=== PATIENT | male | born 1990 | race Caucasian/White ===

== ENCOUNTER 2016-04-09 13:31 | Emergency (ER) | payer SELFPAY ==
[~2016-04-09] VITALS: Ht 172.7 cm; Wt 67.5 kg
[~2016-04-09 13:31] MED LIST: ALBU1AER9 INH; ZOLP10TA6 PO
[2016-04-09 13:49] VITALS: TEMP 36.8; Ht 172.7 cm; Wt 67.5 kg
--- NOTE | 2016-04-09 14:23 | DIAGNOSTIC IMAGING REPORT ---
RIGHT SHOULDER MIN 2 VIEWS ROUTINE CLINICAL HISTORY: rule out fracture Right trauma. Pain. COMPARISON: None. DISCUSSION: The bones and joint spaces appear intact. There is no evidence of fracture, dislocation or bony disease. There is no evidence for soft tissue swelling. IMPRESSION: Negative study. Electronically signed by: Master Alvarez M.D. 04/09/2016 2:22 PM Dictated Date/Time: 04/09/2016 2:22 PM
--- NOTE | 2016-04-09 15:23 | DIAGNOSTIC IMAGING REPORT ---
RIGHT CLAVICLE CLINICAL HISTORY: Right medial clavicle edema, tenderness Right pain COMPARISON: None. DISCUSSION: Fracture medial right clavicle. There appears to be periosteal reaction suggesting potential partial healing. Alignment is in general anatomic. There is no evidence for soft tissue swelling. IMPRESSION: Healing fracture medial right clavicle Electronically signed by: Master Alvarez M.D. 04/09/2016 3:22 PM Dictated Date/Time: 04/09/2016 3:21 PM
[2016-04-09] MEDS ORDERED: OXYC1TAB3 PO (15:36)
[2016-04-09] MEDS ORDERED: OXYCODONE IR HOME PACK PO STA (15:37)
--- NOTE | 2016-04-09 15:37 | EMERGENCY ROOM VISIT NOTE ---
History First contact with patient: 14:10 Chief Complaint: SHOULDER PAIN Stated Complaint: RIGHT SHOULDER INJURY/PAIN History of Present Illness The patient is a 25 year old male who presents to the Emergency Room via private vehicle with complaints of "right shoulder injury/pain". The patient states that yesterday while playing volleyball recreationally he was going for a ball and struck the ground with his arms and notes immediate pain in the right clavicular region. He states that he has been experiencing a weird sensation in that region. He denies any arm pain and rates the clavicular pain as a 5/10. He has been taking ibuprofen with some relief. He denies any arm weakness. He denies any posterior neck pain or headache. He points to a visible bump the medial portion of the right clavicle. He also notes at about a week ago he was weight lifting and felt an odd sensation in the same region. Review of Systems A complete 6-point Review of Systems was discussed with the patient, with pertinent positives and negatives listed in the History of Present Illness. All remaining Review of Systems questions can be considered negative unless otherwise specified. Past Medical/Surgical History Seasonal asthma Family History No pertinent family history. Social History Smoking Status: Never Smoker Alcohol Use: occasionally Social History: Patient is employed and lives at home with mother. Current/Historical Medications Scheduled PRN Albuterol Sulfate (Proair Hfa), 2 PUFFS INH Q4-6HRS PRN for Asthma Symptoms Oxycodone Ir (Roxicodone Ir), 1-2 TAB PO Q4H PRN for Pain Zolpidem Tartrate (Zolpidem Tartrate), 10 MG PO HS PRN for Sleep Allergies Coded Allergies: Shellfish (Verified Allergy, Unknown, ., 04/09/16) Physical Exam Vital Signs Date Time Temp Pulse Resp B/P Pulse Ox O2 Delivery O2 Flow Rate FiO2 04/09/16 15:45 75 16 142/83 98 04/09/16 13:49 36.8 111 20 158/81 98 Room Air Physical Exam VITAL SIGNS - Vital signs and nursing notes were reviewed. Patient is afebrile , blood pressure 158/81, tachycardic at a rate of 100 bpm saturating well on room air at 98% GENERAL -25-year-old male appearing his stated age who is in no acute distress. Communicates well with provider and answers questions appropriately. SKIN - Without rashes. The skin is intact overlying the right clavicle. There is edema noted. HEAD - NC/AT. NECK - Neck with FROM. Supple to palpation. No lymphadenopathy noted. No nuchal rigidity. No C-spine tenderness. LUNGS - Chest wall symmetric without accessory muscle use, intercostals retractions, or central cyanosis. Normal vesicular breath sounds CTA B/L. No wheezes, rales, or rhonchi appreciated. CARDIAC - RRR with S1/S2. No murmur, rubs, or gallops appreciated. EXTREMITIES - No clubbing or peripheral cyanosis. No pretibial edema present. Patient is vascular intact in the right upper extremity. There is palpable deformity of the right medial clavicle. This region is enlarged 2 cm in diameter, and is tender to palpation. Skin is intact. No evidence of dislocation of the sternoclavicular joint. +5/5 strength noted in UE/LE bilaterally. NEUROLOGIC - Cranial nerves II through XII grossly intact. No sensory deficits or neurologic deficits appreciated in the upper extremity. Patient is vascularly intact. PSYCH - Pt is very pleasant and interacts well with examiner. Medical Decision & Procedures ER Provider Diagnostic Interpretation: RIGHT CLAVICLE CLINICAL HISTORY: Right medial clavicle edema, tenderness Right pain COMPARISON: None. DISCUSSION: Fracture medial right clavicle. There appears to be periosteal reaction suggesting potential partial healing. Alignment is in general anatomic. There is no evidence for soft tissue swelling. IMPRESSION: Healing fracture medial right clavicle Electronically signed by: Master Alvarez M.D. 04/09/2016 3:22 PM Dictated Date/Time: 04/09/2016 3:21 PM RIGHT SHOULDER MIN 2 VIEWS ROUTINE CLINICAL HISTORY: rule out fracture Right trauma. Pain. COMPARISON: None. DISCUSSION: The bones and joint spaces appear intact. There is no evidence of fracture, dislocation or bony disease. There is no evidence for soft tissue swelling. IMPRESSION: Negative study. Electronically signed by: Master Alvarez M.D. 04/09/2016 2:22 PM Dictated Date/Time: 04/09/2016 2:22 PM Medications Administered Medications (Trade) Dose Ordered Sig/Cynthia Route Start Time Stop Time Status Last Admin Dose Admin Oxycodone HCl (Roxicodone Immediate Rel 5MG Home Pack) 1 homepack UD STAT PO 04/09/16 15:37 04/09/16 15:39 DC 04/09/16 15:45 1 [facility] Medical Decision Patient was seen and evaluated as above. After obtaining a thorough history and physical examination were initial radiograph was obtained. Shoulder radiograph was negative. I had clinical suspicion of a clavicle fracture and therefore dedicated study was obtained. Clavicle fracture was noted. Patient was provided with an arm sling with good fit. Patient was educated upon management. He was given the number for orthopedic surgeon and instructed to call the number first thing tomorrow morning to schedule follow-up. There is no evidence of pneumothorax upon my exam. Patient was saturating well on room air. No evidence of open fracture. Patient was educated upon management of these findings. He was educated on worrisome symptoms which to return, had questions or discharge and was discharged home in good condition. He did not want anything for pain immediately while he was here, but did want something for home. He was given a home pack of OxyIR as well as a short-term prescription which was sent to his pharmacy for pickup. In the evaluation and treatment of this patient following differential diagnoses were entertained: Clavicle fracture, sternoclavicular joint dislocation, contusion, among others. Pt. Called and felt "jittery" on the Oxy IR. He notes he had percocet before. I canceled the Oxy IR and prescribed Percocet. [facility] Monitoring Program Search Results: patient reviewed within database, no issues identified Impression Primary Impression: Fracture, clavicle closed, shaft Departure Information Dispostion Home / Self-Care Condition GOOD Prescriptions Oxycodone/Acetaminophen 5MG/325MG (PERCOCET 5MG/325MG) Tab 1 TAB PO Q4H Y for Pain, #15 TAB For Initial Treatment Prov: Wallace Johnson PA-C 04/10/16 Referrals No Doctor, Assigned (PCP) Juan Locke M.D. Patient Instructions My [facility] Additional Instructions You have been treated in the Emergency Department for right clavicle pain. X-ray reveals you have broken your right collarbone. You have been prescribed OxyIR to be used for pain control. This is a narcotic medication. You cannot drive or consume alcohol while on this medicine. This medicine should only be used for pain that cannot be controlled with over-the- counter pain medicines. Please take this with a stool softener to help with constipation. For pain control, you can use the following [id number] medicines (if >12 yo): - Regular strength (325mg/tab) Tylenol (acetaminophen) 2 tabs every 4-6 hours as needed. Do not exceed 12 tablets in a 24 hour period. Avoid taking more than 4 grams (4000 mg) of Tylenol per day. This includes any other sources of acetaminophen you may take on a regular basis. - Regular strength (200 mg/tab) Advil (ibuprofen) 1-2 tabs every 4-6 hours as needed. Do not exceed a dose of 3200 mg per day. If this is a recent injury (<24 hrs), ice can be applied to the area of pain for the first 3 days to help decrease pain and inflammation. You have been provided the number for an Orthopaedic Surgeon. You should call this number as soon as possible to establish a follow-up visit from today's Emergency Department visit. Keep the shoulder brace/sling in place until evaluated by Orthopedics. Continue to perform range of motion exercises several times per day to help prevent the development of a "frozen shoulder". Return to the Emergency Department if your current symptoms worsen despite treatment course outlined above, or if you develop any of the following symptoms : intractable pain despite aforementioned treatment course or new onset of numbness or tingling of the arm. Please return to the emergency department with any new/concerning symptoms.
[2016-04-09 15:45] VITALS: BP 142/83; PULSE 75; O2SAT 98
[2016-04-10] MEDS ORDERED: OXYC-57 PO (12:56)
== END 2016-04-09 15:48 | disposition home or self-care (01) ==
LOC: C.EDB 13:32 → C.EDD 15:48
DX: S42.001A Fracture of unspecified part of right clavicle, initial encounter for closed fracture (principal); W21.00XA Struck by hit or thrown ball, unspecified type, initial encounter; Z91.018 Allergy to other foods

== ENCOUNTER 2017-09-18 21:08 | Emergency (ER) | payer OTHER ==
[~2017-09-18] VITALS: Ht 170.2 cm; Wt 66.9 kg
[2017-09-18 21:29] VITALS: TEMP 36.4; Ht 170.2 cm; Wt 66.9 kg
[2017-09-18] MEDS ORDERED: ALBUT/IPRATROP 3MG/0.5MG NEB 3 ML VIAL INH STA (21:38)
[2017-09-18] MEDS ORDERED: DEXAMETHASONE **PF** INJ 10 MG/ML VIAL IV ONE (21:45)
[2017-09-18 21:55] VITALS: O2SAT 98
[2017-09-18 22:08] LABS: HEMATOCRIT 45.7 % (42-52); HEMOGLOBIN 15.8 g/dL (14.0-18.0); MEAN CELL VOLUME 92.1 fL (80-100); MEAN CORPUSCULAR HEMOGLOBIN 31.9 pg (25-34); MEAN CORPUSCULAR HGB CONC 34.6 g/dl (32-36); MEAN PLATELET VOLUME 10.3 fL (7.4-10.4); PLATELET COUNT 324 K/uL (130-400); RED CELL DISTRIBUTION WIDTH CV 12.7 % (11.5-14.5); RED CELL DISTRIBUTION WIDTH SD 42.8 fL (36.4-46.3); WHITE BLOOD COUNT 12.61 K/uL (4.8-10.8)
[2017-09-18 22:39] LABS: ALBUMIN 4.4 gm/dl (3.4-5.0); ALKALINE PHOSPHATASE 65 U/L (45-117); ALT/SGPT 40 U/L (12-78); BLOOD UREA NITROGEN 19 mg/dl (7-18); CALCIUM 9.1 mg/dl (8.5-10.1); CARBON DIOXIDE 26 mmol/L (21-32); CREATININE 1.09 mg/dl (0.60-1.40); GLUCOSE 135 mg/dl (70-99); POTASSIUM 3.8 mmol/L (3.5-5.1); SODIUM 140 mmol/L (136-145)
[2017-09-18 22:42] LABS: BASO % 0.2 %; BASO ABS # 0.03 K/uL (0-0.2); EOS % 4.1 %; EOS ABS # 0.52 K/uL (0-0.5); IG# 0.04 K/uL (0.00-0.02); LYMPH % 46.9 %; LYMPH ABS # 5.91 K/uL (1.2-3.4); MONO % 7.1 %; MONO ABS # 0.89 K/uL (0.11-0.59); NEUT % 41.4 %; NEUT ABS # 5.22 K/uL (1.4-6.5)
[2017-09-18 22:44] LABS: AST/SGOT 31 U/L (15-37)
[2017-09-18] MEDS ORDERED: FLNIN/ NAE (22:49)
[2017-09-18] MEDS ORDERED: VNTHFA/IN INH (22:50)
--- NOTE | 2017-09-18 22:56 | DIAGNOSTIC IMAGING REPORT ---
CHEST 2 VIEWS ROUTINE HISTORY: 27 years-old Male productive cough acute productive cough COMPARISON: Chest radiographs 02/29/2012 TECHNIQUE: PA and lateral views of the chest FINDINGS: Cardiomediastinal and hilar silhouettes are within normal limits. No pneumothorax, pleural effusion, focal airspace consolidation or overt pulmonary edema. The bones of the chest appear grossly intact. IMPRESSION: No acute process. The above report was generated using voice recognition software. It may contain grammatical, syntax or spelling errors. Electronically signed by: Nikita Jarvis M.D. 09/18/2017 10:55 PM Dictated Date/Time: 09/18/2017 10:54 PM
[2017-09-18 23:05] VITALS: BP 152/82; PULSE 100; O2SAT 98
[2017-09-18] MEDS ORDERED: PRED50TA PO (23:23)
[2017-09-18] MEDS ORDERED: HYDROCODONE/APAP ELIX 60ML HOME PACK PO ONE (23:30)
--- NOTE | 2017-09-19 03:10 | EMERGENCY ROOM VISIT NOTE ---
History First contact with patient: 21:33 Chief Complaint: COUGH Stated Complaint: COUGH, TROUBLE BREATHING Nursing Triage Summary: Patient ambulatory to triage with an upright and steady gait, states "I have been having these coughing attacks. I have to gasp for air. I have an inhaler and have been using it almost every 2 hours. I have been really sick for at least 4 days." Patient reports intermittently coughing up thick clear to yellow mucous. History of Present Illness The patient is a 27 year old male who presents to the Emergency Room with complaints of cough and congestion with wheezing for the past week or 2 who saw the family care doctor 4 days ago and was told to use his inhaler. Patient has been using his inhaler nonstop. He feels that he is having trouble catching his breath. Patient denies chest pain, fevers, sore throat, earache, abdominal pain, nausea, vomiting, diarrhea, nexus, leg pain or swelling. No family history of heart disease or blood clots. No personal history of blood clots or heart disease. He does not smoke. No drug use. Review of Systems An 10 system review of systems was completed with positives and pertinent negatives listed in the HPI. Past Medical/Surgical History Asthma Social History Smoking Status: Never Smoker Alcohol Use: occasionally Marital Status: single Housing Status: lives with family Current/Historical Medications Scheduled Fluticasone Propionate (Fluticasone Propionate), 2 SPRAYS REJI DAILY Prednisone (Prednisone), 50 MG PO DAILY Scheduled PRN Albuterol Hfa (Ventolin Hfa), 2 PUFFS INH Q4 PRN for SOB/Wheezing Zolpidem Tartrate (Zolpidem Tartrate), 10 MG PO HS PRN for Sleep Physical Exam Vital Signs Date Time Temp Pulse Resp B/P (MAP) Pulse Ox O2 Delivery O2 Flow Rate FiO2 09/18/17 23:05 100 16 152/82 98 Room Air 09/18/17 22:03 111 09/18/17 21:55 98 Room Air 09/18/17 21:29 36.4 140 20 169/81 98 Room Air 09/18/17 21:29 98 Room Air Physical Exam PHYSICAL EXAM: Vital Signs: Reviewed Nurse's notes. Oxygen saturation was 98% on room air. GENERAL: Pleasant male anxious appearing, Alert, oriented and coherent. The patient is able to speak in complete sentences. NECK: Supple, non -tender. CHEST: Symmetrical expansion. no retractions no accessory muscle use. HEART: Regular rate and normal heart sounds, no murmur, gallop or rub. LUNGS: Breath sounds equal but significantly diminished in intensity on both sides. Bilateral wheezes heard but no rales or pleuritic rub. SKIN: The skin was without rashes, erythema, edema, or bruising. There is no tenting of the skin. Capillary reflex less than 2 seconds. HEAD: Normocephalic atraumatic. EARS: External auditory canals clear, tympanic membranes pearly dugan without erythema or effusion bilaterally. EYES: Pupils equal round and reactive to light and accommodation. Conjunctivae without injection, sclerae without icterus. Extraocular movements intact. NOSE: Patent, turbinates without inflammation or discharge. No sinus tenderness. MOUTH: Mucous membranes moist. Pharynx without erythema or exudate. Uvula midline. Airway patent. Tongue does not deviate. ABDOMEN: Positive bowel sounds x 4. Normal tympanic percussion. Soft, nontender, without masses or organomegaly. Lopez sign negative. No guarding or rebound tenderness. MUSCULOSKELETAL: No muscle atrophy, erythema, or edema noted. NEURO: Patient was alert and oriented to person place and time. Normal sensation to light and sharp touch. No focal neurological deficits. Medical Decision & Procedures Laboratory Results 09/18/17 21:55 Red Blood Count 4.96, Mean Corpuscular Volume 92.1, Mean Corpuscular Hemoglobin 31.9, Mean Corpuscular Hemoglobin Concent 34.6, Mean Platelet Volume 10.3, Neutrophils (%) (Auto) 41.4, Lymphocytes (%) (Auto) 46.9, Monocytes (%) (Auto) 7.1, Eosinophils (%) (Auto) 4.1, Basophils (%) (Auto) 0.2, Neutrophils # (Auto) 5.22, Lymphocytes # (Auto) 5.91, Monocytes # (Auto) 0.89, Eosinophils # (Auto) 0.52, Basophils # (Auto) 0.03 09/18/17 21:55 Test 09/18/17 21:55 09/18/17 22:00 White Blood Count 12.61 K/uL (4.8-10.8) Red Blood Count 4.96 M/uL (4.7-6.1) Hemoglobin 15.8 g/dL (14.0-18.0) Hematocrit 45.7 % (42-52) Mean Corpuscular Volume 92.1 fL (80-100) Mean Corpuscular Hemoglobin 31.9 pg (25-34) Mean Corpuscular Hemoglobin Concent 34.6 g/dl (32-36) Platelet Count 324 K/uL (130-400) Mean Platelet Volume 10.3 fL (7.4-10.4) Neutrophils (%) (Auto) 41.4 % Lymphocytes (%) (Auto) 46.9 % Monocytes (%) (Auto) 7.1 % Eosinophils (%) (Auto) 4.1 % Basophils (%) (Auto) 0.2 % Neutrophils # (Auto) 5.22 K/uL (1.4-6.5) Lymphocytes # (Auto) 5.91 K/uL (1.2-3.4) Monocytes # (Auto) 0.89 K/uL (0.11-0.59) Eosinophils # (Auto) 0.52 K/uL (0-0.5) Basophils # (Auto) 0.03 K/uL (0-0.2) RDW Standard Deviation 42.8 fL (36.4-46.3) RDW Coefficient of Variation 12.7 % (11.5-14.5) Immature Granulocyte % (Auto) 0.3 % Immature Granulocyte # (Auto) 0.04 K/uL (0.00-0.02) Tear Drop Cells 1+ Anion Gap 9.0 mmol/L (3-11) Est Creatinine Clear Calc Drug Dose 94.4 ml/min Estimated GFR () 106.5 Estimated GFR (Non- 91.9 BUN/Creatinine Ratio 17.6 (10-20) Calcium Level 9.1 mg/dl (8.5-10.1) Magnesium Level 2.0 mg/dl (1.8-2.4) Total Bilirubin 0.2 mg/dl (0.2-1) Direct Bilirubin < 0.1 mg/dl (0-0.2) Aspartate Amino Transf (AST/SGOT) 31 U/L (15-37) Alanine Aminotransferase (ALT/SGPT) 40 U/L (12-78) Alkaline Phosphatase 65 U/L (45-117) Troponin I < 0.015 ng/ml (0-0.045) Total Protein 8.0 gm/dl (6.4-8.2) Albumin 4.4 gm/dl (3.4-5.0) Thyroid Stimulating Hormone (TSH) 0.618 uIu/ml (0.300-4.500) Bedside D-Dimer 179 ng/mlFEU (0-450) Medications Administered Medications (Trade) Dose Ordered Sig/Cynthia Route Start Time Stop Time Status Last Admin Dose Admin Albuterol/ Ipratropium (Duoneb) 3 ml NOW STAT INH 09/18/17 21:38 09/18/17 21:40 DC 09/18/17 22:06 3 ML Dexamethasone Sodium Phosphate (Dexamethasone Inj Pf) 10 mg NOW ONCE IV 09/18/17 21:45 09/18/17 21:46 DC 09/18/17 22:06 10 MG Acetaminophen/ Hydrocodone Bitart (Hydrocod/Apap Elix 7.5/325MG/ 15ML Home Pack) 1 homepack UD ONCE PO 09/18/17 23:30 09/18/17 23:31 DC 09/18/17 23:29 1 [facility] ED Course Prior records/ancillary studies reviewed. Triage Nursing notes reviewed. Additional history obtained from the family. The patient's history was concerning for respiratory difficulties. Differential diagnosis: Etiologies such as infections, anxiety, reactive airway disease, pneumonia, pneumothorax, COPD, CHF, cardiac ischemia, pulmonary embolism, musculoskeletal, gastrointestinal, as well as others were entertained. Physical examination: As above. ER treatment provided: Nebulizer, Decadron On reassessment the patient felt better. Diagnostic interpretation by me: The electrocardiogram was negative for acute ischemic or pathologic change. Normal sinus, normal intervals, no acute ST-T wave changes, rate of 104. Impression sinus tachycardia interpreted by myself I think arrhythmia is unlikely. EKG shows normal sinus rhythm with no interval abnormalities such as QT prolongation or WPW. There are no findings to suggest Brugada syndrome. Cardiac monitoring in the emergency department reveals no tachycardic or bradycardic dysrhythmia. Hypertrophic cardiomyopathy was considered but there are no clear historical elements pointing toward this. EKG is not suggestive. The QRS voltage is not extremely large and there are no suggestive Q waves. The labs revealed negative d-dimer. Negative troponin. Mild hyperglycemia without DKA Imaging studies: Chest x-ray as above. ] CHEST 2 VIEWS ROUTINE HISTORY: 27 years-old Male productive cough acute productive cough COMPARISON: Chest radiographs 02/29/2012 TECHNIQUE: PA and lateral views of the chest FINDINGS: Cardiomediastinal and hilar silhouettes are within normal limits. No pneumothorax, pleural effusion, focal airspace consolidation or overt pulmonary edema. The bones of the chest appear grossly intact. IMPRESSION: No acute process. The above report was generated using voice recognition software. It may contain grammatical, syntax or spelling errors. Electronically signed by: Nikita Jarvis M.D. HEART SCORE: Hx: high/mod/low suspicion: 0 ECG: ST depression/nonspecific changes/normal: 0 Age: Greater than 65/45-64/less than 45: 0 Risk factors: (Hypertension, hyperlipidemia, diabetes, coronary disease, tobacco use, cocaine use): 0 Troponin: Greater than 2 times normal limits/1-2 times normal limits/normal: 0 Total: 0 Wells Score Symptoms of DVT 3pt: 0 Alternative diagnoses better explains illness 3pts: 0 Tachycardia greater than 100 1.5 pts 1.5 Immobilization greater than 3 days or surgery in the previous 4 weeks 1.5 pts: 0 Prior history of DVT or PE 1.5 pts: 0 Presence of hemoptysis 1pt: 0 Presence of malignancy 1pt: 0 (Score greater than 6 is high probability, score 2-6 moderate probability, score less than 2 low probability) Total: 1.5 The pulmonary embolism rule out criteria (PERC rule) Age <50 years 0 Heart rate <100 bpm yes Oxyhemoglobin saturation =95% 0 No hemoptysis 0 No estrogen use 0 No prior DVT or PE 0 No unilateral leg swelling 0 No surgery/trauma requiring hospitalization within the prior four weeks 0 (0 low risk) Total: 1 yes This appears to be consistent with asthmatic bronchitis. Patient felt better after being medicated as above. He was still quite anxious appearing. Patient had a low heart score. He has a low well score and a positive PERC score. D- dimer was negative. Symptoms been ongoing for 2 weeks now. Patient was advised to take medications as directed, rest, decrease stress and follow-up family care in a few days or here in the ER sooner for chest pain, difficulty breathing, fevers, worsening signs or symptoms or as needed. Patient had no pneumonia on x-ray. He was afebrile nontoxic. He was not hypoxic. By the evaluation outlined above emergent etiologies such as CHF, cardiac ischemia, pulmonary embolism, pneumonia, pneumothorax, musculoskeletal, serious bacterial infections, as well as others were deemed relatively unlikely. The pt informed about the findings as listed above. All questions were answered and pleased with the treatment. Return instructions were outlined and the patient was discharged in stable condition. Outpatient prescription management: prednsione Referral: The patient was referred back to their primary care physician for follow-up in 2 to 3 days for a recheck of the current condition. Case reviewed with my attending The chart was completed utilizing [employer] Speech voice recognition software. Grammatical errors, random word insertions, pronoun errors, and incomplete sentences are an occassional consequence of this system due to software limitations, ambient noise, and hardware issues. Any formal questions or concerns about the content, text, or information contained within the body of this dictation should be directly addressed to the physician bilingual medical assistant for clarification. Medical Decision As above Medication Reconcilliation Current Medication List: was personally reviewed by me Blood Pressure Screening Patient's blood pressure: Normal blood pressure Impression Primary Impression: Asthmatic bronchitis Departure Information Dispostion Home / Self-Care Condition GOOD Prescriptions Prednisone (Prednisone) 50 Mg Tab 50 MG PO DAILY for 4 Days, #4 TAB Prov: Daniela Infante PA-C 09/18/17 Forms HOME CARE DOCUMENTATION FORM, Work Instructions, Return To Work: 2 days IMPORTANT VISIT INFORMATION Patient Instructions My [facility], ED Bronchitis Asthmatic Additional Instructions Albuterol Inhaler: Take 2 puffs four times daily for five days, then as needed. Prednisone 50mg: Once daily until the prescription is finished. It is best to take this earlier in the day as some patients note occasional difficulty falling asleep when taken in the late evening. Hycodan cough syrup: use one teaspoon every six hours only as needed for severe cough. It is best for use at night since it will cause sedation. This is a narcotic medication. Avoid alcohol, operating machinery or dangerous equipment, working on ladders or roofs, DRIVING, or situations where being under the influence may be dangerous. It is recommended to use an over-the- counter stool softener such as Colace, 100mg twice daily while taking this medication to avoid constipation. Acetaminophen(Tylenol) may be used for fever or pain. Use 1000mg every six hours as needed. Avoid using more than 3000mg in a 24 hour period. (AND/OR) Ibuprofen(Motrin, Advil) may be used for fever or pain. Use 600mg every six hours as needed. Take with food. Avoid using more than 2400mg in a 24 hour period. Do not use 2400mg per day for more than three consecutive days without physician direction. Prolonged inappropriate use can lead to stomach upset or ulcers. Rest and drink plenty of fluids. Avoid smoke/smoking, fumes, dust, or any triggers in the past that may have affected your breathing. Continue current medications. Return to the ER for chest pain, difficulty breathing, fevers, vomiting, worsening of your condition, or as needed. Follow up with your primary physician this week for a recheck of your current condition. Work Instructions Return To Work: 2 days Problem Qualifiers Primary Impression: Asthmatic bronchitis Asthma severity: mild Asthma persistence: persistent Asthma complication type: with acute exacerbation Qualified Codes: J45.31 - Mild persistent asthma with (acute) exacerbation
== END 2017-09-18 23:30 | disposition home or self-care (01) ==
LOC: C.EDB 21:10 → C.EDC 23:30
DX: J44.9 Chronic obstructive pulmonary disease, unspecified (principal)